=== PATIENT | female | born 1965 | race Caucasian/White ===

== ENCOUNTER 2021-07-26 22:20 | Emergency (ER) | payer SELFPAY ==
[~2021-07-26] VITALS: Ht 152.4 cm; Wt 90.7 kg
[2021-07-26 22:30] VITALS: BP_SYST 149
--- NOTE | 2021-07-26 22:30 | NUR ---
Patient triaged and placed in waiting room. VSS and patient appears in no acute distress at this time. Accompanied by family member, awaiting available bed, and MD notified of need for MSE.
[2021-07-27 00:06] LABS: BASOPHILS # (AUTO) 0.1 K/uL (0.0-0.2); BASOPHILS % (AUTO) 0.6 % (0.0-2.0); EOSINOPHILS # (AUTO) 0.4 K/uL (0.0-0.4); EOSINOPHILS % (AUTO) 3.4 % (0.0-4.0); HEMATOCRIT 41.1 % (36-54); HEMOGLOBIN 14.1 g/dL (14.0-18.0); LYMPHOCYTES # (AUTO) 2.7 K/uL (1.0-5.5); LYMPHOCYTES % (AUTO) 24.8 % (20.5-51.5); MEAN CORPUSCULAR HEMOGLOBIN 30 pg (27-31); MEAN CORPUSCULAR HGB CONC 34 % (32-36); MEAN CORPUSCULAR VOLUME 87 fL (79.0-98.0); MONOCYTES % (AUTO) 9.2 % (1.7-9.3); NEUTROPHILS # (AUTO) 6.8 K/uL (1.8-7.7); PLATELET COUNT (AUTO) 246 K/uL (130-430); RED BLOOD CELL COUNT(AUTO) 4.75 MIL/uL (4.2-6.2); RED CELL DISTRIBUTION WIDTH 13.3 % (9.0-15.0); WHITE BLOOD COUNT (AUTO) 10.9 K/uL (4.8-10.8)
[2021-07-27 00:34] LABS: CALCIUM 9.1 mg/dL (8.4-11.0); CREATININE 0.78 mg/dL (0.55-1.30)
[2021-07-27 00:46] LABS: BILIRUBIN,URINE NEGATIVE (NEGATIVE); BLOOD, URINE NEGATIVE (NEGATIVE); CLARITY/URINE CLEAR (CLEAR); COLOR,URINE YELLOW (YELLOW); GLUCOSE,URINE NEGATIVE (NEGATIVE); KETONES,URINE NEGATIVE (NEGATIVE); LEUKOCYTE ESTERASE ,URINE NEGATIVE (NEGATIVE); NITRITE, URINE NEGATIVE (NEGATIVE); PROTEIN URINE NEGATIVE (NEGATIVE); UROBILINOGEN,URINE 0.2 (0.2-1.0)
--- NOTE | 2021-07-27 00:50 | NUR ---
Call pt name in the wr.no answer.
--- NOTE | 2021-07-27 00:55 | NUR ---
Call pt name in the wr.no answer.
[2021-07-27 00:58] LABS: ALBUMIN 3.9 g/dL (3.4-4.8); TOTAL BILIRUBIN 0.2 mg/dL (0.0-1.0)
--- NOTE | 2021-07-27 01:00 | NUR ---
Call pt name in the wr.no answer.
[2021-07-27] MEDS ORDERED: MECLIZINE HCL 25 MG TABLET (ANITVERT) PO ONE (01:15)
[2021-07-27] MEDS ORDERED: ONDANSETRON 4 MG ODT TAB PO ONE (01:15)
== END 2021-07-27 01:00 | disposition left against medical advice (07) ==
LOC: EDSEX → SED 22:20
DX: R42 Dizziness and giddiness (principal); Z53.21 Procedure and treatment not carried out due to patient leaving prior to being seen by health care provider
CPT/HCPCS: 36415; 80053; 81003; 85025

== ENCOUNTER 2021-07-27 09:00 | Emergency (ER) | payer SELFPAY ==
[~2021-07-27] VITALS: Ht 167.6 cm; Wt 90.7 kg
--- NOTE | 2021-07-27 09:12 | NUR ---
Dr. Koroma to triage to assess.
[2021-07-27 09:15] VITALS: BP_SYST 130
--- NOTE | 2021-07-27 09:15 | NUR ---
Pt to bed 2 for evaluation.
--- NOTE | 2021-07-27 09:16 | NUR ---
Pt AAO and ambulatory reporting a sudden onset of dizziness and near syncope. Pt reports that her family said she was slurring her speech during that time. Pt reports that it only lasted a few seconds but decided to come in last night to get checked. Pt AMA'd because it was so busy. Pt came back today to get checked but currently does not have any compaints.
--- NOTE | 2021-07-27 09:18 | NUR ---
Report given to ANDREINA Martinez who will assume care.
--- NOTE | 2021-07-27 09:35 | NUR ---
PT TAKEN TO CT HEAD FOR EVALUATION.
--- NOTE | 2021-07-27 10:28 | NUR ---
PT DISCHARGED HOME STABLE, TO FOLLOW-UP WITH PMD, AND JOE, NAD, VSS.
== END 2021-07-27 10:28 | disposition home or self-care (01) ==
LOC: SED 09:00
DX: R42 Dizziness and giddiness (principal); Z88.8 Allergy status to other drugs, medicaments and biological substances
CPT/HCPCS: 70450-TC; 76376; 93005; 99284